=== PATIENT | female | born 1990 | race African-American/Black ===

== ENCOUNTER 2016-08-16 10:01 | Emergency (ER) | payer BC | END 2016-08-16 10:20 | disposition home or self-care (01) | LOC: ER 10:01 | PROC: 09C3XZZ Extirpation of Matter from Right External Auditory Canal, External Approach (ICD-10-PCS; principal; 2016-08-16) | DX: T16.1XXA Foreign body in right ear, initial encounter (principal); W45.8XXA Other foreign body or object entering through skin, initial encounter | CPT/HCPCS: 99283 ==

== ENCOUNTER 2016-11-17 10:22 | Emergency (ER) | payer BC | END 2016-11-17 14:22 | disposition home or self-care (01) | LOC: ER 10:22 | PROC: 0H9FXZZ Drainage of Right Hand Skin, External Approach (ICD-10-PCS; principal; 2016-11-17) | DX: S61.220A Laceration with foreign body of right index finger without damage to nail, initial encounter (principal); Z91.041 Radiographic dye allergy status; Z91.013 Allergy to seafood; W25.XXXA Contact with sharp glass, initial encounter; W45.8XXA Other foreign body or object entering through skin, initial encounter | CPT/HCPCS: 73140-RT; 99283 ==